=== PATIENT | female | born 1965 | race African-American/Black ===

== ENCOUNTER 2016-05-18 16:47 | Emergency (ER) | payer MEDICARE, MEDICAID ==
--- NOTE | 2016-05-18 21:49 | ED ---
Abdominal Pain/Female - HPI Summary HPI Summary: Pt here w/ Lt sided chest/LUQ pain/flank pain x 3 days. Worse w/ bending forward. Has a chronic fibromyalgia breast/thoracic back pain B/L but this is different. Has been trying to ignore it, but finally had a oven tender bagels today so decided to come in for evaluation. Denies N/V/D, fever, chills. Eating and drinking w/o difficulty. Does have h/o GERD somewhat relieved w/ OTC generic maalox. Takes 800mg ibuprofen intermittently but pain today doesn't feel like GERD pain. Had 2 BM's earlier today. No difficulty w/ BM's. Denies shortness of breath, chest pain and sx do not worsen w/ exertion nor do they radiate into jaw or arm. No diaphoresis nor leg swelling. No previous cardiac issues but has a h/o hyperlipidemia and stopped taking her statin on her own a while ago. Denies h/o hypertension, DM. She does not smoke, drink ETOH or do drugs. Mom had a pacemaker and great grandmother had DM. She denies cough however does admit she had a cold last week - seems to be feeling better and denies SOB. Also has a h/o UTI which sort of felt same but denies urinary frequency, urgency , incontinence. No known h/o kidney stone. She is sexually active - would like to be checked for as she has not had her period since February. Has been asking other women in her family when they went through "the change" and is getting mixed results. Denies other sx of menopause at this time (ie. moodiness, change in menstrual flow, etc). Denies vaginal d/c, pelvic pain. No trauma or new activities that could have cause RENUKA injury or soreness here. - History of Current Complaint Chief Complaint: EDFlankPain Stated Complaint: CHEST PAIN UNDER RIB Time Seen by Provider: 05/18/16 21:30 Hx Obtained From: Patient Pain Intensity: 8 Allergies/Adverse Reactions: Allergies Allergy/AdvReac Type Severity Reaction Status Date / Time No Known Allergies Allergy Verified 04/24/16 14:40 PMH/Surg Hx/FS Hx/Imm Hx Previously Healthy: No - URI last week, chronic pain Cardiovascular History: Reports: Hx Hypertension Denies: Hx Congestive Heart Failure Respiratory History: Reports: Hx Asthma GI History: Reports: Hx Gastroesophageal Reflux Disease Denies: Hx Cirrhosis, Hx Crohn's Disease, Hx Diverticulosis, Hx Gall Bladder Disease, Hx Gastrointestinal Bleed, Hx Irritable Bowel, Hx Obstructive Bowel, Hx Ulcer Musculoskeletal History: Reports: Hx Back Problems, Hx Fibromyalgia, Other Musculoskeletal History - Chronic Pain Neurological History: Reports: Other Neuro Impairments/Disorders - FIBROMYALGIA , ARTHRITIS - Cancer History Hx Chemotherapy: No Hx Radiation Therapy: No Infectious Disease History: No Infectious Disease History: Denies: Traveled Outside the [place] in Last 30 Days - Family History Known Family History: Positive: Other - Lupus - mom Negative: Cardiac Disease Family History: Negative fhx in cardiac hx. - Social History Occupation: Disabled Lives: With Family - children Alcohol Use: None Hx Substance Use: No Substance Use Type: Reports: None Substance Use Comment - Amount & Last Used: percocet Hx Tobacco Use: No Smoking Status (MU): Never Smoked Tobacco Have You Smoked in the Last Year: No Review of Systems Negative: Fever, Chills ENT: Other - see HPI Negative: Sore Throat, Ear Ache, Nasal Discharge Cardiovascular: Other - see HPI Negative: Shortness Of Breath, Cough Gastrointestinal: Other - see HPI Positive: see HPI Musculoskeletal: Other - see HPI Neurological: Negative Negative: Weakness, Paresthesia, Numbness Psychological: Normal All Other Systems Reviewed And Are Negative: Yes Physical Exam Triage Information Reviewed: Yes Vital Signs On Initial Exam: Initial Vitals Temp Pulse Resp BP Pulse Ox 97.4 F 96 20 146/87 98 05/18/16 17:09 05/18/16 17:09 05/18/16 17:09 05/18/16 17:09 05/18/16 17:09 Vital Signs Reviewed: Yes Appearance: Positive: Well-Appearing, No Pain Distress, Obese Skin: Positive: Warm, Dry - no erythema, no lesion, no ecchymosis over affected area Head/Face: Positive: Normal Head/Face Inspection Eyes: Positive: Normal, EOMI, Conjunctiva Clear - anicteric ENT: Positive: Hearing grossly normal, Pharynx normal - mucosa somewhat dry (pt reports this is baseline from her meds). Negative: Nasal congestion, Nasal drainage Neck: Positive: Supple, Nontender Respiratory/Lung Sounds: Positive: Clear to Auscultation, Breath Sounds Present. Negative: Rales, Rhonchi, Wheezes Cardiovascular: Positive: Normal, RRR, Pulses are Symmetrical in both Upper and Lower Extremities, S1, S2 Abdomen Description: Positive: No Organomegaly - although difficult to asses d/ t body habitus, Soft, Other: - TTP LUQ, up under rib - no rebounding. Negative : CVA Tenderness (R), CVA Tenderness (L) Bowel Sounds: Positive: Present Musculoskeletal: Positive: Normal, Strength/ROM Intact - pain is not worse w/ overhead reaching but is worse with forward bending Neurological: Positive: Normal, Sensory/Motor Intact, Alert, Oriented to Person Place, Time, CN Intact II-III Psychiatric: Positive: Normal - pleasant, calm, concerned - [place] Coma Scale Coma Scale Total: 15 Diagnostics - Vital Signs Vital Signs Temp Pulse Resp BP Pulse Ox 05/18/16 18:34 98.4 F 96 18 155/70 96 05/18/16 17:09 97.4 F 96 20 146/87 98 - Laboratory Result Diagrams: 05/18/16 22:24 05/18/16 22:24 Lab Statement: Any lab studies that have been ordered have been reviewed, and results considered in the medical decision making process. Abdominal Pain Fem Course/Dx - Course Course Of Treatment: The cause of pain was not identified via ecg, labs, CXR and U/A. After discussion w/ pt to explain she has organs in this area that we could further investigate via U/S and/or CT scan but pt declines as she is less worried after intial testing and wants to get home to her kids. She feels it's probably her fibromyalgia acting up and will try a lidoderm patch trial. Also reviewed this could be early shingles - she will watch for a rash. Education about other possible pathologies such as but not limited to splenomegaly (this was considered since she had recent URI and could have mono), pancreatic pathology (although she has no digestive sx and pancreatic enzymes are WNL), intestinal pathology (again, digestion seems to be working well). Reviewed danger s/sx of when to return to ED - pt agrees w/ plan. - Diagnoses Provider Diagnoses: Acute LUQ pain Discharge - Discharge Plan Condition: Stable Disposition: HOME Patient Education Materials: Thoracic Pain (ED) Referrals: Celina Duncan MD [Primary Care Provider] - Additional Instructions: The cause of your Left side pain as not clearly identified tonight however life threatening issues were ruled out. You were provided with a lidoderm pain patch to try. 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 Call tomorrow to schedule a follow-up appointment soon. *If you develop nausea, vomiting, diarrhea, severe abdominal pain, fever, chills , bloody stools, chest pain or shortness of breath, return to ED
[2016-05-18 22:03] LABS: Urine Bacteria Absent (Absent); Urine Bilirubin Negative (Negative); Urine Glucose Negative (Negative); Urine Nitrite Negative (Negative)
--- NOTE | 2016-05-18 22:26 | RAD ---
HISTORY: Left-sided chest pain, left upper quadrant pain COMPARISONS: September 29, 2015 VIEWS: 2: Frontal dual-energy and lateral views of the chest. FINDINGS: CARDIOMEDIASTINAL SILHOUETTE: The cardiomediastinal silhouette is normal. MAG: The mag are normal. PLEURA: The costophrenic angles are sharp. No pleural abnormalities are noted. LUNG PARENCHYMA: The lungs are clear. ABDOMEN: The upper abdomen is clear. There is no subphrenic gas. BONES AND SOFT TISSUES: No bone or soft tissue abnormalities are noted. OTHER: None. IMPRESSION: NO ACTIVE CARDIOPULMONARY DISEASE.
[2016-05-18 22:32] LABS: Hematocrit 37 % (35-47); Hemoglobin 11.7 g/dl (12.0-16.0); Mean Corpuscular HGB Conc 32 g/dl (31-36); Mean Corpuscular Hemoglobin 26 pg (27-31); Mean Corpuscular Volume 82 fL (80-97); Mean Platelet Volume 7 um3 (7.4-10.4); Red Blood Count 4.49 10^6/ul (4.0-5.4); Red Cell Distribution Width 16 % (10.5-15); White Blood Count 11.9 10^3/ul (3.5-10.8)
[2016-05-18 22:48] LABS: ALT 13 U/L (7-52); AST 13 U/L (13-39); Albumin 3.5 g/dL (3.2-5.2); Alkaline Phosphatase 74 U/L (34-104); Anion Gap 5 mmol/L (2-11); BUN/Creatinine Ratio 10.3 (8-20); Blood Urea Nitrogen 7 mg/dL (6-24); C Reactive Protein 13.18 mg/L (< 5.00); CO2 Carbon Dioxide 30 mmol/L (22-32); Calcium 8.8 mg/dL (8.6-10.3); Chloride 100 mmol/L (101-111); EGFR African American 118.8 (>60); EGFR Non-African American 92.3 (>60); Glucose 111 mg/dL (70-100); Lipase < 10 U/L (11.0-82.0); Magnesium 1.9 mg/dL (1.9-2.7); Potassium 3.5 mmol/L (3.5-5.0); Sodium 135 mmol/L (133-145); Total Protein 7.5 g/dL (6.4-8.9)
[2016-05-18] MEDS ORDERED: Lidocaine PATCH 5%* 1 PATCH TRANSDERM SCH (23:45)
[2016-05-18 23:49] VITALS: BP 145/71
[2016-05-19] MEDS ORDERED: Lidocaine Patch REMOVE* 1 NOTE MISC SCH (21:00)
== END 2016-05-18 23:43 | disposition home or self-care (01) ==
LOC: ED 16:47
DX: R10.12 Left upper quadrant pain (principal); R07.9 Chest pain, unspecified; Z87.19 Personal history of other diseases of the digestive system
CPT/HCPCS: 36415; 71020; 80053; 81003; 81015; 83605; 83690; 83735; 84484; 85025; 86140; 87086; 93005; 99282; A9270-GY

== ENCOUNTER 2016-11-07 22:52 | Emergency (ER) | payer MEDICARE ==
[2016-11-07] MEDS ORDERED: Aspirin TAB* 325 MG PO ONE (23:27)
[2016-11-08] LABS: Hematocrit 37 % (35-47); Hemoglobin 12.2 g/dl (12.0-16.0); Mean Corpuscular HGB Conc 33 g/dl (31-36); Mean Corpuscular Hemoglobin 27 pg (27-31); Mean Corpuscular Volume 82 fL (80-97); Mean Platelet Volume 7 um3 (7.4-10.4); Red Blood Count 4.51 10^6/ul (4.0-5.4); Red Cell Distribution Width 16 % (10.5-15); White Blood Count 8.7 10^3/ul (3.5-10.8)
[2016-11-08 00:03] LABS: ALT 17 U/L (7-52); AST 14 U/L (13-39); Albumin 3.8 g/dL (3.2-5.2); Alkaline Phosphatase 96 U/L (34-104); Anion Gap 6 mmol/L (2-11); BUN/Creatinine Ratio 9.1 (8-20); Blood Urea Nitrogen 7 mg/dL (6-24); C Reactive Protein 11.49 mg/L (< 5.00); CO2 Carbon Dioxide 28 mmol/L (22-32); Calcium 9.2 mg/dL (8.6-10.3); Chloride 100 mmol/L (101-111); EGFR African American 102.5 (>60); EGFR Non-African American 79.7 (>60); Globulin 4.1 g/dL (2-4); Glucose 133 mg/dL (70-100); Lipase < 10 U/L (11.0-82.0); Potassium 3.7 mmol/L (3.5-5.0); Sodium 134 mmol/L (133-145); Total Protein 7.9 g/dL (6.4-8.9)
[2016-11-08] MEDS ORDERED: Iohexol 350* (CONTRAST) 500 ML MDV IV ONE (00:27)
[2016-11-08 01:47] LABS: Urine Bacteria Absent (Absent); Urine Bilirubin Negative (Negative); Urine Glucose Negative (Negative); Urine Nitrite Negative (Negative)
[2016-11-08] MEDS ORDERED: cefTRIAXone(*) 1 GM in NS 0.9% 50 ML* 50 ML IVPB ONE (02:40)
[2016-11-08] MEDS ORDERED: Acetaminophen TAB* 325 MG PO PRN (02:43)
[2016-11-08] MEDS ORDERED: Morphine INJ* 2 MG/ML 1 ML CARPUJECT IV ONE (02:43)
[2016-11-08] MEDS ORDERED: NS 0.9% 1000 ML* 1,000 ML IV ONE (02:43)
--- NOTE | 2016-11-08 04:18 | HP ---
CC: Celina Duncan MD HISTORY AND PHYSICAL: DATE OF ADMISSION: PRIMARY CARE PHYSICIAN: Celina Duncan MD DICTATION ENDS ABRUPTLY HERE [id number]/[facility] #: [id number]
[2016-11-08] MEDS ORDERED: oxyCODONE/Acetamin 5/325 MG* TAB PO ONE (04:20)
[2016-11-08 06:49] VITALS: BP 138/70
--- NOTE | 2016-11-08 09:14 | RAD ---
INDICATION: Chest pain, elevated d-dimer. Hypertension, asthma, gastroesophageal reflux disease. COMPARISON: November 07, 2016 chest radiograph and April 20, [address] TECHNIQUE: Multidetector CT images were obtained from the lung apices to the upper abdomen with 88 mL Omnipaque 350 IV contrast. Pulmonary angiogram protocol. Multiplanar reformation including with maximum intensity projection. REPORT: Accounting for motion artifact the lungs and pleural spaces are clear. Negative for pneumothorax. Negative for thoracic lymphadenopathy. Upper normal heart size. Negative for pericardial effusion. Normal diameter thoracic aorta with variant common origin of the RIGHT brachiocephalic and LEFT common carotid arteries. The CT pulmonary angiogram is severely limited due to suboptimal contrast opacification of the pulmonary arteries, motion artifact, and obese body habitus. No compelling filling defects are identified within the main to the lobar and where visible segmental pulmonary arteries to indicate pulmonary embolism. Limited images through the upper abdomen are remarkable for fatty infiltration of the liver. Diffuse thoracic degenerative spondylosis and facet joint osteoarthritis with extensive associated reactive sclerosis. IMPRESSION: The CT pulmonary angiogram is severely limited due to suboptimal contrast opacification of the pulmonary arteries, motion artifact, and obese body habitus. No compelling filling defects are identified within the main to the lobar and where visible segmental pulmonary arteries to indicate pulmonary embolism. If there is persistent high clinical index of suspicion consider repeat exam as well as lower extremity venous ultrasound.
--- NOTE | 2016-11-08 10:46 | RAD ---
INDICATION: RIGHT upper quadrant pain. LEFT side rib pain. COMPARISON: CT pulmonary angiogram of the same date. April 20, 2015 CT abdomen pelvis. TECHNIQUE: Multidetector CT images were obtained from the lung bases to the ischial tuberosities. Evaluation of the viscera is limited without IV contrast. Multiplanar reformation. REPORT: Obese body habitus limits image quality. Minimal basilar atelectasis at the visualized lung bases. Decreased density of the liver consistent with fatty infiltration with focal sparing at the gallbladder fossa. No CT abnormality of the gallbladder. Unremarkable pancreas and spleen. Negative for CT abnormality of the upper GI, small bowel, or medially extending appendix. Moderate stool in the colon through the splenic flexure. The colon is decompressed distal to the splenic flexure. Negative for ascites or free air. Small fat-containing umbilical hernia without inflammatory change. Normal adrenal glands. Symmetric pyelographic phase contrast at the kidneys from the CT pulmonary angiogram of the same date. No conspicuous focal renal lesions or hydronephrosis. Unremarkable nondilated ureters and partially distended urinary bladder with pyelographic phase contrast. Unremarkable anteverted uterus mild prominence of the RIGHT ovary with suggestion of a 3.2 cm maximum dimension hypodense lesion which may represent a follicular cyst or hemorrhagic cyst. Negative for lymphadenopathy. Normal diameter abdominal aorta and iliac arteries. Physiologic distention of the IVC. Indolent subchondral sclerosis flanking the sacroiliac joints. No suspicious focal osseous lesions evident. IMPRESSION: 1. Fatty infiltration of the liver. 2. No pathologic process of the alimentary tract evident. 3. Negative for obstructive uropathy. Presence of a sonographic phase contrast from the CT pulmonary angiogram could obscure small renal stones. 4. Probable 3.2 cm maximum dimension follicular or hemorrhagic cyst of the RIGHT ovary.
--- NOTE | 2016-11-08 14:43 | RAD ---
Indication: LEFT side chest /rib pain since 4:00 PM. Hypertension, asthma. Comparison: November 08, 2016 CT abdomen. Technique: Upright AP 1155 hours Report: Mild elevation of the LEFT hemidiaphragm. No pulmonary infiltrate, focal pulmonary lesion, pleural effusion, pneumothorax. Upper normal heart size. Unremarkable central pulmonary vasculature. IMPRESSION: No evidence for acute intrathoracic disease.
--- NOTE | 2016-11-09 03:49 | CONS ---
CONSULTATION REPORT: DATE OF CONSULTATION: 11/08/16 - EMERGENCY DEPT TIME OF EVALUATION: 0300 PRIMARY CARE PHYSICIAN: Celina Duncan M.D. CHIEF COMPLAINT: Left-sided abdominal pain. HISTORY OF PRESENT ILLNESS: This is a 51-year-old female with a past medical history of fibromyalgia, morbid obesity, who presents to the emergency room after developing left-sided abdominal pain around 4:00 p.m. The patient states she was feeling like she was having a lot of gas or menstrual cramps and she had a large bowel movement and the pain did not seem to improve despite having bowel movement. No nausea or vomiting. She does note she has a lot of urinary frequency. She had decreased appetite. No fevers, chills. No back pain, no chest pain, no shortness of breath. She states that it feels like she has had period cramps that is causing her pain, also concerned about infection. She states her last menstrual period was third week in September and it is usually regular. New medications, she was started on amoxicillin recently for oral surgery for 11/18/16. Otherwise, remainder of review of systems is negative. In the emergency room, the patient had labs and imaging and was referred to the hospitalist service for further evaluation. PAST MEDICAL HISTORY: 1. Morbidly obese. 2. Fibromyalgia. 3. Constipation. MEDICATIONS: The patient is not aware of the exact medications she is on. SOCIAL HISTORY: She lives with her three children. Her healthcare proxy is her son, Lele Villa. No smoking, occasional alcohol use. She is disabled. Code status full code. REVIEW OF SYSTEMS: A 14-point review of systems as mentioned in the HPI. Otherwise negative. FAMILY HISTORY: Reviewed and noncontributory. PHYSICAL EXAMINATION: Vitals: Temp is 97.7, pulse rate 92, respiratory rate 22 , oxygen saturation 96% on room air, blood pressure 151/96. General: No acute distress. Mild discomfort. Morbidly obese. With her nephew and nephew's girlfriend at the bedside. HEENT: Head normocephalic. Pupils are equal and reactive, anicteric. Oropharynx: Mucous membranes are moist. Neck supple, no lymphadenopathy. Cardiac: Regular rate and rhythm. No murmur, rubs or gallops. Respiratory: Diminished breath sounds. No wheezing, rhonchi or rales. Abdomen: Hypoactive bowel sounds and left-sided upper quadrant tenderness. No rebound or guarding. Extremities: No clubbing, cyanosis or edema. +1 DP's. Neurological: Alert and oriented x3. No focal neurologic deficits. LABORATORY DATA: White count 8.7, hemoglobin 12., hematocrit 37, platelets 397 , INR 0.87, D-dimer 252, sodium 134, potassium 3.7, chloride 100, bicarb 28, BUN 7, creatinine 0.77, glucose 133. CRP is 11.49, lipase less than 10, beta- HCG less than 0.6. Urinalysis +1 blood, +3 leukocytes, +1 whites. RADIOGRAPHIC DATA: Chest CTA: Lungs are clear, unable to evaluate for PE due to the timing of the dye. EKG showed sinus rhythm. ASSESSMENT: This is a 51-year-old female with past medical history of fibromyalgia and morbid obesity, presents to the emergency room with left upper quadrant abdominal pain and urinary frequency. Abdominal pain: Assessment: I suspect this may be pyelonephritis; could be kidney stones. It does not appear to be cardiac related as this is more in her abdomen the pain located. This could be the sort of her menses or this could be the early onset of gastroenteritis. I discussed with the patient starting on empiric antibiotics, IV fluids, get a CAT scan to rule out a stone, which she is all agreeable to, but she does not want to get admitted, which I do not think is unreasonable as she does not meet sepsis criteria. If her pain gets under better control and a CAT scan is unremarkable, recommend sending home with antibiotics and following up with her primary. My recommendations were relayed to Dr. Scherer, who is agreeable to this and to the patient as well. Thank you for this consultation. PATIENT TIME: Greater than 50 minutes were spent doing the consultation, more than half the time was spent in direct patient contact. [id number]/[facility] #: [id number] BILLY
[2016-11-09] MEDS ORDERED: cefTRIAXone VIAL(*) 1,000 MG in NS 0.9% 50 ML* 50 ML IVPB SCH (04:00)
--- NOTE | 2016-11-10 18:46 | PN ---
Progress Note - Progress Note Date of Service: 11/10/16 Note: urine culture grew normal abigail and laine albican so likely containment. placed on bactrim at discharge. no further action needed at this time.
== END 2016-11-08 06:45 | disposition home or self-care (01) ==
LOC: ED 22:52
DX: R10.9 Unspecified abdominal pain (principal); E66.01 Morbid (severe) obesity due to excess calories; K59.00 Constipation, unspecified
CPT/HCPCS: 36415; 71010; 71275; 74176; 80053; 81003; 81015; 83605; 83690; 84484; 84702; 85025; 85379; 85610; 85730; 86140; 87086; 87106; 93005; 96374; 99282; 99283; A9270-GY; J0696; Q9967

== ENCOUNTER 2018-06-23 22:20 | Emergency (ER) | payer MEDICARE, OTHER ==
[2018-06-23] MEDS ORDERED: Ketorolac INJ* 30 MG/ML 1 ML VIAL IV PUSH ONE (22:48)
[2018-06-23] MEDS ORDERED: NS 0.9% 1000 ML** 1,000 ML IV ONE (22:48)
--- NOTE | 2018-06-23 23:26 | ED ---
Abdominal Pain/Female - HPI Summary HPI Summary: This patient is a 52 year old F presenting to [facility] with a chief complaint of a stabbing right flank pain radiating to her back since this morning. Patient was lying in bed when the pain started. The patient rates the pain 8/10 in severity. Symptoms aggravated by standing up and turning over onto her left side. Patient reports diarrhea for 2 days prior to the flank pain and vomiting last night. Patient denies fever, nausea currently, chills, urinary symptoms, blood in her stool, PO changes, SOB, CP, and pain when eating. She was here at [facility] before for a similar abdominal pain, but she says that they didnt diagnose her, they just ruled out kidney problems. LNMP 3 days ago. No BM today. PMHx of fibromyalgia. She denies allergies. Pt is on Lyrica, Savella, Cyclobenzaprine, prednisone for pain, ibuprofen 800 mg, and oxycodone. - History of Current Complaint Chief Complaint: EDFlankPain Stated Complaint: ABD PAIN PER PT Time Seen by Provider: 06/23/18 23:01 Hx Obtained From: Patient Onset/Duration: Sudden Onset, Lasting Hours, Still Present Severity Initially: Severe Severity Currently: Severe Pain Intensity: 8 Pain Scale Used: 0-10 Numeric Location: Flank - Right flank Radiates: Yes Radiates to: Back Aggravating Factor(s): Movement Alleviating Factor(s): Medications Associated Signs and Symptoms: Positive: Back Pain, Vomiting - Last night, Diarrhea - For 2 days prior to abd pain. Negative: Fever, Chest Pain, Blood in Stool, Urinary Symptoms, Decreased Appetite, Nausea - currently, Other: - Chills , changes in PO, SOB, pain when eating. Allergies/Adverse Reactions: Allergies Allergy/AdvReac Type Severity Reaction Status Date / Time No Known Allergies Allergy Verified 05/10/18 09:36 PMH/Surg Hx/FS Hx/Imm Hx Endocrine/Hematology History: Denies: Hx Diabetes - BORDERLINE NO MEDS Cardiovascular History: Reports: Hx Hypertension Denies: Hx Congestive Heart Failure Respiratory History: Reports: Hx Asthma GI History: Reports: Hx Gastroesophageal Reflux Disease Denies: Hx Cirrhosis, Hx Crohn's Disease, Hx Diverticulosis, Hx Gall Bladder Disease, Hx Gastrointestinal Bleed, Hx Irritable Bowel, Hx Obstructive Bowel, Hx Ulcer History: Denies: Hx Renal Disease Musculoskeletal History: Reports: Hx Back Problems, Hx Fibromyalgia, Other Musculoskeletal History - Chronic Pain Neurological History: Reports: Other Neuro Impairments/Disorders - FIBROMYALGIA , ARTHRITIS - Cancer History Hx Chemotherapy: No Hx Radiation Therapy: No - Surgical History Surgery Procedure, Year, and Place: hand surgery, foot surgery - Immunization History Date of Tetanus Vaccine: unk Date of Influenza Vaccine: unk Infectious Disease History: No Infectious Disease History: Denies: Traveled Outside the [place] in Last 30 Days - Family History Known Family History: Positive: Other - Lupus - mom Negative: Cardiac Disease Family History: Negative fhx in cardiac hx. - Social History Alcohol Use: None Alcohol Amount: Three times per year Hx Substance Use: No Substance Use Type: Reports: None Substance Use Comment - Amount & Last Used: percocet Hx Tobacco Use: No Smoking Status (MU): Never Smoked Tobacco Have You Smoked in the Last Year: No Review of Systems Negative: Fever, Chills Negative: Chest Pain Negative: Shortness Of Breath Positive: Vomiting - last night, Diarrhea - for 2 days prior to the abd pain. Negative: Nausea - currently, Other - blood in stool, PO changes, pain when eating Negative: other - urinary symptoms All Other Systems Reviewed And Are Negative: Yes Physical Exam - Summary Physical Exam Summary: Appearance: well appearing, obese, in pain distress Skin: warm, dry, reflects adequate perfusion Head/face: normal Eyes: EOMI, ELAINE ENT: mucous membranes moist Neck: supple, non-tender Respiratory: CTA, breath sounds present Cardiovascular: RRR, pulses symmetrical Abdomen: RUQ tenderness, soft Bowel Sounds: present Musculoskeletal: normal, strength/ROM intact Neuro: normal, sensory motor intact, A&Ox3 Triage Information Reviewed: Yes Vital Signs On Initial Exam: Initial Vitals Temp Pulse Resp BP Pulse Ox 97 F 79 20 160/98 97 06/23/18 22:41 06/23/18 22:41 06/23/18 22:41 06/23/18 22:41 06/23/18 22:41 Vital Signs Reviewed: Yes Diagnostics - Vital Signs Vital Signs Temp Pulse Resp BP Pulse Ox 06/23/18 22:41 97 F 79 20 160/98 97 - Laboratory Result Diagrams: 06/23/18 23:14 06/23/18 23:14 Lab Statement: Any lab studies that have been ordered have been reviewed, and results considered in the medical decision making process. - CT Abdomen/Pelvis CT Interpretation Completed By: Radiologist Summary of CT Findings: 23:47. Umbilical hernia with findings suggesting strangulation. No additional findings to correlate with patient's symptomatology. ED Physician has reviewed this imaging report. Abdominal Pain Fem Course/Dx - Course Course Of Treatment: Patient with right-sided mid abdominal/flank pain. She has no pain in her umbilical region and the findings on CT do not correlate to pain. There is no bowel incarcerated in this hernia. This was discussed with the surgeon who thinks that it is an irrelevant finding. Patient has a lot of stool on the CT in the area for discomfort. There is no Pollock sign and no evidence a kidney stone. She'll be treated symptomatically for possible constipation and will follow-up with her primary care physician. - Diagnoses Differential Diagnosis: Positive: Appendicitis, Bowel Obstruction, Constipation , Diverticulitis, Gall Bladder Disease, Irritable Bowel Syndrome, Ovarian Cyst, Pancreatitis, Renal Colic, Urinary Tract Infection Provider Diagnoses: Acute abdominal pain - Provider Notifications Discussed Care Of Patient With: Earl Joiner - Surgery Time Discussed With Above Provider: 00:01 Instructed by Provider To: Other - MD will look at the abdomen/pelvis CT Discharge - Sign-Out/Discharge Documenting (check all that apply): Patient Departure - D/C home Patient Received Moderate/Deep Sedation with Procedure: No - Discharge Plan Condition: Stable Disposition: HOME Prescriptions: Hyoscyamine Sulfate [Levsin/Sl] 0.125 mg SL Q4H PRN #30 sub PRN Reason: abdominal cramping Polyethylene Glycol 3350 BTL* [Miralax] 17 g PO BID PRN #1 btl PRN Reason: Constipation Patient Education Materials: Acute Abdominal Pain (ED) Referrals: Celina Duncan MD [Primary Care Provider] - Additional Instructions: Call first thing in the morning to schedule prompt follow-up with your doctor. Return with fever, vomiting, increased pain, worse, new symptoms or other concerns. - Billing Disposition and Condition Condition: STABLE Disposition: Home - Attestation Statements Document Initiated by Scribe: Yes Documenting Scribe: Choco Romero Provider For Whom Scribe is Documenting (Include Credential): Carmine Carrillo MD Scribe Attestation: Choco Carranza, scribed for Carmine Carrillo MD on 06/24/18 at [id number]. Scribe Documentation Reviewed: Yes Provider Attestation: The documentation as recorded by the scribe, Choco Romero accurately reflects the service I personally performed and the decisions made by me, Carmine Carrillo MD Status of Scribe Document: Viewed
[2018-06-23 23:39] LABS: ALT 17 U/L (7-52); AST 17 U/L (13-39); Albumin 3.8 g/dL (3.2-5.2); Alkaline Phosphatase 93 U/L (34-104); Anion Gap 9 mmol/L (2-11); BUN/Creatinine Ratio 10.1 (8-20); Blood Urea Nitrogen 7 mg/dL (6-24); C Reactive Protein 13.62 mg/L (<8.01); CO2 Carbon Dioxide 28 mmol/L (22-32); Calcium 8.7 mg/dL (8.6-10.3); Chloride 102 mmol/L (101-111); EGFR Non-African American 90.1 (>60); Glucose 123 mg/dL (70-100); Potassium 3.3 mmol/L (3.5-5.0); Sodium 139 mmol/L (135-145); Total Protein 7.8 g/dL (6.4-8.9)
[2018-06-23 23:54] LABS: ABS Eosinophils 0.1 10^3/ul (0-0.6); ABS Lymphocytes 2.6 10^3/ul (1.0-4.8); ABS Monocytes 0.5 10^3/ul (0-0.8); ABS Neutrophils 5.3 10^3/ul (1.5-7.7); Eosinophil % 1.4 %; Hematocrit 36 % (35-47); Hemoglobin 11.8 g/dL (12.0-16.0); Lymphocyte % 30.1 %; Mean Corpuscular HGB Conc 33 g/dL (31-36); Mean Corpuscular Hemoglobin 27 pg (27-31); Mean Corpuscular Volume 81 fL (80-97); Mean Platelet Volume 7.2 fL (7.4-10.4); Nucleated Red Blood Cells % 0.1; Platelet Count 407 10^3/uL (150-450); Red Blood Count 4.46 10^6 /uL (3.70-4.87); Red Cell Distribution Width 15 % (10.5-15); White Blood Count 8.5 10^3/uL (3.5-10.8)
[2018-06-24 01:05] VITALS: BP 151/75
== END 2018-06-24 01:03 | disposition home or self-care (01) ==
LOC: ED 22:20
DX: R10.9 Unspecified abdominal pain (principal); K42.9 Umbilical hernia without obstruction or gangrene; I10 Essential (primary) hypertension; J45.909 Unspecified asthma, uncomplicated; K21.9 Gastro-esophageal reflux disease without esophagitis
CPT/HCPCS: 36415; 74176; 80053; 83605; 83690; 85025; 86140; 96361; 96374; 99283; J1885

== ENCOUNTER 2019-04-24 14:42 | Emergency (ER) | payer MEDICARE, MEDICAID ==
[2019-04-24 16:28] LABS: ABS Basophils 0.1 10^3/ul (0-0.2); ABS Eosinophils 0.1 10^3/ul (0-0.6); ABS Monocytes 0.6 10^3/ul (0-0.8); ABS Neutrophils 8.6 10^3/ul (1.5-7.7); Eosinophil % 0.8 %; Hematocrit 35 % (35-47); Hemoglobin 11.2 g/dL (12.0-16.0); Mean Corpuscular HGB Conc 33 g/dL (31-36); Mean Corpuscular Hemoglobin 26 pg (27-31); Mean Corpuscular Volume 80 fL (80-97); Mean Platelet Volume 7.1 fL (7.4-10.4); Nucleated Red Blood Cells % 0.1; Platelet Count 427 10^3/uL (150-450); Red Blood Count 4.33 10^6 /uL (3.70-4.87); Red Cell Distribution Width 17 % (10-15); White Blood Count 11.3 10^3/uL (3.5-10.8)
[2019-04-24 17:06] LABS: ALT 16 U/L (7-52); AST 14 U/L (13-39); Alkaline Phosphatase 106 U/L (34-104); Anion Gap 9 mmol/L (2-11); BUN/Creatinine Ratio 9.6 (8-20); Blood Urea Nitrogen 7 mg/dL (6-24); C Reactive Protein 21.03 mg/L (<8.01); CO2 Carbon Dioxide 28 mmol/L (22-32); Calcium 9.4 mg/dL (8.6-10.3); Chloride 99 mmol/L (101-111); EGFR African American 101.7 (>60); Globulin 4.1 g/dL (2-4); Glucose 134 mg/dL (70-100); Potassium 4.2 mmol/L (3.5-5.0); Sodium 136 mmol/L (135-145); Total Protein 8.1 g/dL (6.4-8.9)
[2019-04-24] MEDS ORDERED: Ketorolac INJ* 30 MG/ML 1 ML VIAL IV PUSH ONE (17:30)
[2019-04-24] MEDS ORDERED: Iohexol 300* (CONTRAST) 10 ML SDV IV ONE (17:45)
[2019-04-24 18:00] LABS: Urine Appearance Cloudy; Urine Bilirubin Negative (Negative); Urine Blood Negative (Negative); Urine Color Yellow; Urine Glucose Negative (Negative); Urine Ketones Negative (Negative); Urine Nitrite Negative (Negative); Urine Protein Negative (Negative); Urine Specific Gravity 1.017 (1.010-1.030); Urine Urobilinogen Negative (Negative)
--- NOTE | 2019-04-24 19:18 | ED ---
GI/ HPI - HPI Summary HPI Summary: 53-year-old male presents with abdominal pain for the past couple days. She states she has had a decreased appetite. She denies any nausea or vomiting. No vaginal discharge. No urinary symptoms. Has a history of a . No other previous surgeries. Has a history of fibroids and ovarian cysts. She tried to follow up with her SUPERINTENDENT but was unable to get an appointment for couple months. She denies any chance of a pelvic infection. She has a history of umbilical hernia. - History of Current Complaint Chief Complaint: EDAbdPain Time Seen by Provider: 04/24/19 17:10 Stated Complaint: ABD PAIN PER PT Pain Intensity: 8 - Allergy/Home Medications Allergies/Adverse Reactions: Allergies Allergy/AdvReac Type Severity Reaction Status Date / Time morphine AdvReac Headache Verified 04/24/19 14:48 Home Medications: Home Medications Albuterol HFA INHALER* [Ventolin HFA Inhaler*] 2 puff INH Q4HR PRN 03/16/12 [ History Confirmed 04/24/19] Pregabalin 100 mg CAP (*) [Lyrica 100 mg CAP (*)] 100 mg PO TID 12/09/12 [ History Confirmed 04/24/19] Cyclobenzaprine TAB* [Flexeril 10 MG TAB*] 10 mg PO TID PRN 02/13/15 [History Confirmed 04/24/19] Milnacipran(NF) [Savella(NF)] 50 mg PO BID 05/15/15 [History Confirmed 04/24/19] Ibuprofen TAB* [Motrin TAB* 800 MG] 800 mg PO Q8H #30 tab 09/29/15 [Rx Confirmed 04/24/19] Al Hydrox/Mg Hydrox/Simet LIQ* [Maalox Plus*] 30 ml PO Q4H PRN 04/24/16 [ History Confirmed 04/24/19] oxyCODONE/Acetamin 5/325 MG* [Percocet 5/325 TAB*] 1 tab PO Q6H PRN #10 tab MDD 4 11/08/16 [Rx Confirmed 04/24/19] Docusate CAP* [Colace Cap*] 100 mg PO DAILY 04/26/17 [History Confirmed 04/24/19 ] predniSONE 5 mg TAB [Deltasone 5 mg TAB] 2.5 mg PO BID 04/26/17 [History Confirmed 04/24/19] Hyoscyamine Sulfate [Levsin/Sl] 0.125 mg SL Q4H PRN #30 sub 06/24/18 [Rx Confirmed 04/24/19] Polyethylene Glycol 3350 BTL* [Miralax] 17 g PO BID PRN #1 btl 06/24/18 [Rx Confirmed 04/24/19] metroNIDAZOLE TAB* [Flagyl 250 mg TAB*] 500 mg PO BID 09/09/18 [History Confirmed 04/24/19] DULoxetine DR CAP* [Cymbalta CAP*] 30 mg PO DAILY 03/07/19 [History Confirmed ] Dicyclomine CAP* [Bentyl CAP*] 10 mg PO AC PRN 03/07/19 [History Confirmed 04/23] Furosemide TAB* [Lasix TAB*] 20 mg PO DAILY 03/07/19 [History Confirmed 04/24/19 ] PMH/Surg Hx/FS Hx/Imm Hx Endocrine/Hematology History: Denies: Hx Diabetes - BORDERLINE NO MEDS Cardiovascular History: Reports: Hx Hypertension Denies: Hx Congestive Heart Failure Respiratory History: Reports: Hx Asthma GI History: Reports: Hx Gastroesophageal Reflux Disease Denies: Hx Cirrhosis, Hx Crohn's Disease, Hx Diverticulosis, Hx Gall Bladder Disease, Hx Gastrointestinal Bleed, Hx Irritable Bowel, Hx Obstructive Bowel, Hx Ulcer History: Denies: Hx Renal Disease Musculoskeletal History: Reports: Hx Back Problems, Hx Fibromyalgia, Other Musculoskeletal History - Chronic Pain Neurological History: Reports: Other Neuro Impairments/Disorders - FIBROMYALGIA , ARTHRITIS - Cancer History Hx Chemotherapy: No Hx Radiation Therapy: No - Surgical History Surgery Procedure, Year, and Place: hand surgery, foot surgery - Immunization History Date of Tetanus Vaccine: unk Date of Influenza Vaccine: unk Infectious Disease History: No Infectious Disease History: Denies: Traveled Outside the [place] in Last 30 Days - Family History Known Family History: Positive: Other - Lupus - mom Negative: Cardiac Disease Family History: Negative fhx in cardiac hx. - Social History Alcohol Use: Rare Alcohol Amount: Three times per year Hx Substance Use: No Substance Use Type: Reports: Prescribed Substance Use Comment - Amount & Last Used: Clare Hx Tobacco Use: No Smoking Status (MU): Never Smoked Tobacco Have You Smoked in the Last Year: No Review of Systems Negative: Fever Negative: Chest Pain Negative: Shortness Of Breath Positive: Abdominal Pain. Negative: Vomiting, Diarrhea, Nausea All Other Systems Reviewed And Are Negative: Yes Physical Exam Triage Information Reviewed: Yes Vital Signs On Initial Exam: Initial Vitals Temp Pulse Resp BP Pulse Ox 97.4 F 110 20 157/96 95 04/24/19 14:45 04/24/19 14:45 04/24/19 14:45 04/24/19 14:45 04/24/19 14:45 Vital Signs Reviewed: Yes Appearance: Positive: Well-Appearing Skin: Positive: Warm, Dry Head/Face: Positive: Normal Head/Face Inspection Eyes: Positive: Normal, Conjunctiva Clear ENT: Positive: Pharynx normal Respiratory/Lung Sounds: Positive: Clear to Auscultation, Breath Sounds Present Cardiovascular: Positive: Normal, RRR Abdomen Description: Positive: Soft, Other: - tenderness in lower abd Bowel Sounds: Positive: Present Musculoskeletal: Positive: Normal Neurological: Positive: Normal Psychiatric: Positive: Normal Procedures - Sedation Patient Received Moderate/Deep Sedation with Procedure: No Diagnostics - Vital Signs Vital Signs Temp Pulse Resp BP Pulse Ox 04/24/19 18:19 90 147/95 97 04/24/19 18:00 95 97 04/24/19 17:13 98.6 F 121 20 180/99 95 04/24/19 17:12 123 96 04/24/19 14:45 97.4 F 110 20 157/96 95 - Laboratory Lab Results: Lab Results 04/24/19 04/24/19 04/24/19 Range/Units 16:11 16:11 17:18 WBC 11.3 H (3.5-10.8) 10^3/uL RBC 4.33 (3.70-4.87) 10^6 /uL Hgb 11.2 L (12.0-16.0) g/dL Hct 35 (35-47) % MCV 80 (80-97) fL MCH 26 L (27-31) pg MCHC 33 (31-36) g/dL RDW 17 H (10-15) % Plt Count 427 (150-450) 10^3/uL MPV 7.1 L (7.4-10.4) fL Neut % (Auto) 75.7 % Lymph % (Auto) 18.0 % [place] % (Auto) 5.0 % Eos % (Auto) 0.8 % Baso % (Auto) 0.5 % Absolute Neuts (auto) 8.6 H (1.5-7.7) 10^3/ul Absolute Lymphs (auto) 2.0 (1.0-4.8) 10^3/ul Absolute Monos (auto) 0.6 (0-0.8) 10^3/ul Absolute Eos (auto) 0.1 (0-0.6) 10^3/ul Absolute Basos (auto) 0.1 (0-0.2) 10^3/ul Absolute Nucleated RBC 0.0 10^3/ul Nucleated RBC % 0.1 Sodium 136 (135-145) mmol/L Potassium 4.2 (3.5-5.0) mmol/L Chloride 99 L (101-111) mmol/L Carbon Dioxide 28 (22-32) mmol/L Anion Gap 9 (2-11) mmol/L BUN 7 (6-24) mg/dL Creatinine 0.73 (0.51-0.95) mg/dL Est GFR ( Amer) 101.7 (>60) Est GFR (Non-Af Amer) 84.0 (>60) BUN/Creatinine Ratio 9.6 (8-20) Glucose 134 H (70-100) mg/dL Calcium 9.4 (8.6-10.3) mg/dL Total Bilirubin 0.30 (0.2-1.0) mg/dL AST 14 (13-39) U/L ALT 16 (7-52) U/L Alkaline Phosphatase 106 H (34-104) U/L C-Reactive Protein 21.03 H (<8.01) mg/L Total Protein 8.1 (6.4-8.9) g/dL Albumin 4.0 (3.2-5.2) g/dL Globulin 4.1 H (2-4) g/dL Albumin/Globulin Ratio 1.0 (1-3) Lipase < 10 L (11.0-82.0) U/L Urine Color Yellow Urine Appearance Cloudy Urine pH 5.0 (5-9) Ur Specific [place] 1.017 (1.010-1.030) Urine Protein Negative (Negative) Urine Ketones Negative (Negative) Urine Blood Negative (Negative) Urine Nitrate Negative (Negative) Urine Bilirubin Negative (Negative) Urine Urobilinogen Negative (Negative) Ur Leukocyte Esterase Negative (Negative) Urine Glucose Negative (Negative) Result Diagrams: 04/24/19 16:11 04/24/19 16:11 Lab Statement: Any lab studies that have been ordered have been reviewed, and results considered in the medical decision making process. - CT and CT Interpretation Completed By: Radiologist Summary of CT Findings: IMPRESSION: 1. Mild fat filled umbilical hernia, slightly increased since 06/23/2018. 2. Otherwise negative CT abdomen/pelvis. - Ultrasound No standard instances Ultrasound Interpretation Completed By: Radiologist Summary of Ultrasound Findings: IMPRESSION: LIMITED STUDY. NO SONOGRAPHIC FEATURES OF TORSION. PLEASE NOTE THAT PARTIAL OR INTERMITTENT TORSION MAY BE SONOGRAPHICALLY NORMAL. Re-Evaluation - Re-Evaluation First Eval Re-Evaluation Time: 19:18 Change: Improved Comment: feeling better after toradol Second Eval Re-Evaluation Time: 21:34 Comment: discussed hernia is larger than before. patient states see dr da silva for such? GIGU Course/Dx - Course Course Of Treatment: 53-year-old male presents with abdominal pain for the past couple days. She states she has had a decreased appetite. She denies any nausea or vomiting. No vaginal discharge. No urinary symptoms. Has a history of a . No other previous surgeries. Has a history of fibroids and ovarian cysts. She tried to follow up with her SUPERINTENDENT but was unable to get an appointment for couple months. She denies any chance of a pelvic infection. She has a history of umbilical hernia. On exam has tenderness over her umbilical hernia and left and right lower quadrants. Ultrasound shows no ovarian torsion but unable to see previous fibroids. wbc normal. CRP is elevated. CT shows no acute findings. Does show umbilical hernia. Gave referral surgery. told follow up with food service lead and primary. Patient understands and agrees with plan. - Diagnoses Differential Diagnoses - Female: Gastroenteritis (Viral), Ovarian Cyst, Urinary Tract Infection Provider Diagnoses: Abdominal pain, Hernia, umbilical Discharge ED - Sign-Out/Discharge Documenting (check all that apply): Patient Departure - Discharge Plan Condition: Good Disposition: HOME Patient Education Materials: Abdominal Pain (ED) Referrals: Celina Duncan MD [Primary Care Provider] - Trenton Noonan MD [Medical Doctor] - Additional Instructions: Take ibuprofen or Tylenol for pain as needed every 6 hours apply heat to area a referral was given for surgery if would like to follow up about hernia Follow up with primary within 5 days Return to ED if develop any new or worsening symptoms - Billing Disposition and Condition Condition: GOOD Disposition: Home
[2019-04-24 21:38] VITALS: BP 175/96
== END 2019-04-24 21:37 | disposition home or self-care (01) ==
LOC: ED 14:42
DX: R10.30 Lower abdominal pain, unspecified (principal); K42.9 Umbilical hernia without obstruction or gangrene; R73.03 Prediabetes; I10 Essential (primary) hypertension; J45.909 Unspecified asthma, uncomplicated; K21.9 Gastro-esophageal reflux disease without esophagitis; M79.7 Fibromyalgia; Z79.51 Long term (current) use of inhaled steroids; Z79.899 Other long term (current) drug therapy; Z88.5 Allergy status to narcotic agent
CPT/HCPCS: 36415; 74177; 76830; 80053; 81003; 83690; 85025; 86140; 96374; 99283; J1885; Q9967